=== PATIENT | female | born 1960 | race Caucasian/White ===

== ENCOUNTER 2017-05-02 18:32 | Emergency (ER) | payer OTHER ==
[~2017-05-02] VITALS: Ht 167.6 cm; Wt 77.1 kg
[2017-05-02 19:05] VITALS: BP 110/83
[2017-05-02] MEDS: cefTRIAXone SOD 1,000 MG VL IM ONE (19:36)
== END 2017-05-02 19:39 | disposition home or self-care (01) ==
LOC: ER 18:49
DX: L02.811 Cutaneous abscess of head [any part, except face] (principal); F17.210 Nicotine dependence, cigarettes, uncomplicated
CPT/HCPCS: 96372; 99283; J0696